=== PATIENT | female | born 1985 | race Caucasian/White ===

== ENCOUNTER 2021-06-13 16:43 | Emergency (ER) | payer MEDICAID, OTHER, SELFPAY ==
[~2021-06-13] VITALS: Ht 154.9 cm; Wt 46.8 kg
[2021-06-13 16:54] VITALS: BP 139/88
[2021-06-13] MEDS ORDERED: KETOROLAC 30 MG/1 ML ONE (19:08)
--- NOTE | 2021-06-13 19:10 | NUR ---
PT REFUSES TORADOL INJECTION. NOTIFIED, RASTA REQUESTED
[2021-06-13] MEDS ORDERED: IBUPROFEN 600 MG TABLET ONE (19:18)
[2021-06-13] MEDS ORDERED: KETOROLAC 30 MG/1 ML IM ONE (19:30)
[2021-06-13] MEDS ORDERED: IBUPROFEN 600 MG TABLET PO ONE (19:30)
--- NOTE | 2021-06-13 20:00 | NUR ---
Patient/Caregiver given discharge instructions and they have confirmed that they understand the instructions. Patient ambulatory with proper use of crutches. NAD, all questions answered appropriately, denies additional needs at this time. No personal belongings left in room after discharge.
== END 2021-06-13 20:10 | disposition home or self-care (01) ==
LOC: ED 20:00
DX: S92.424A Nondisplaced fracture of distal phalanx of right great toe, initial encounter for closed fracture (principal); W50.1XXA Accidental kick by another person, initial encounter; Y93.89 Activity, other specified; Y92.89 Other specified places as the place of occurrence of the external cause; Y99.8 Other external cause status
CPT/HCPCS: 29515; 99283